=== PATIENT | male | born 2000 | race Caucasian/White ===

== ENCOUNTER 2023-09-14 08:25 | Emergency (ER) | payer SELFPAY ==
--- NOTE | ~2023-09-14 | XR_ITS ---
EXAMINATION: XR ankle LT min 3V DATE: 09/14/2023 08:46 INDICATION: Medial left ankle pain post soccer injury TECHNIQUE: Anteroposterior, oblique, mortise, and lateral views of the left ankle were obtained. COMPARISON: None. FINDINGS: Alignment is normal. No fracture. Joint spaces are well maintained. No ankle joint effusion. The so ft tissues are unremarkable. IMPRESSION: 1. Negative left ankle radiographs. Reviewed, dictated and finalized at location A.
--- NOTE | 2023-09-14 08:39 | ED.EXTPRO ---
HPI - Extremity Problem General Chief complaint: Extremity Problem,Nontraumatic Stated complaint: left ankle injury Time Seen by Provider: 09/14/23 08:40 Source: patient Mode of arrival: ambulatory Limitations: no limitations History of Present Illness HPI Narrative: Simone is a 23-year-old male patient presenting to the clinic today with complaints of a left ankle injury that occurred yesterday when he injured his ankle while playing soccer. States he was playing soccer when another opponent was coming towards him and that upon stuck out her leg and he jumped over the opponent and all inverted his left ankle. Is complaining of some left medial ankle pain. Related Data Home Medications Medication Instructions Recorded Confirmed No Home Medications 09/14/23 09/14/23 Allergies Allergy/AdvReac Type Severity Reaction Status Date / Time No Known Allergies Allergy Verified 09/14/23 08:56 Review of Systems Review of Systems: Pertinent positives per HPI. Patient denies any fever, chills, rash, headache, visual changes, dizziness, cough, runny nose, sore throat, shortness of breath, chest pain, palpitations, nausea, vomiting, diarrhea, constipation, abdominal pain, or any urinary issues. PMFSH Comments At the time of my signature, I reviewed and agree with the nursing past medical, surgical, social, and family history. There is no relevant family history pertinent to the patient complaint. Exam Narrative: General: Well-developed, well nourished, in no apparent distress Head: Normocephalic, atraumatic. Cardio: Regular rate and rhythm, s1 and s2 normal, no murmur appreciated. Resp: Clear to auscultation bilaterally, no rhonchi, rales, wheezing or rubs. Musculoskeletal: No deformity, tender to palpation over the medial ankle, pain with valgus and varus testing and dorsal flexion against resistance, muscle strength strong and equal, peripheral pulse strong, no edema, no cyanosis, normal gait and station Course Course Emergency Course: Portions of this record may have been created with voice recognition software. Level of Care: Express Care Visit Vital Signs Vital signs: Vital signs reviewed MDM - Extremity (Nontraumatic) MDM Narrative Medical decision making narrative: At the time of visit patient is resting comfortably on the exam table. Patient appears to be nontoxic. Diagnostics: X-ray of the left ankle was performed and was negative for any sign of fracture or malalignment. Plan: I suspect patient has a medial ankle sprain. Ice pack and Jonnie wrap was given to the patient. Patient already has crutches. Supportive measures were discussed with the patient and they voiced understanding discharge instructions and agrees to treatment plan. Return precautions reviewed Differential Diagnosis Differential diagnosis: Likely other (Ankle fracture, ankle sprain, contusion, soft tissue swelling/injury) Discharge Plan Discharge Clinical Impression: Left ankle sprain Qualifiers: Encounter type: initial encounter Involved ligament of ankle: other ligament Qualified Code(s): S93.492A - Sprain of other ligament of left ankle, initial encounter Patient Disposition: Home, Self-Care Condition: Stable Instructions: Antibiotic Form, Ankle Sprain (ED) Additional Instructions: Radiografia e ky?it t? k?mb?s s? majt? ?sht? negative p?r ?do shenj? thyerjeje ose keqdrejtimi. Pushoni, akulloni, ngrini lart dhe vishni mb?shtjell?sin jonnie sipas udh?zimeve Mund t? p?rdorni paterica p?r dit?t n? vijim Tylenol/motrin p?r dhimbje si? u diskutua. Gradualisht mbani pesh? Asnj? vrap apo sport derisa t? sh?rohet. Ndiqni co PCP-n? tuaj n?se simptomat vazhdojn? m? yola? se 1 shana?. Prescriptions: No Action No Home Medications Follow-up/Referrals: PHYSICIAN,CORE MANAGER [Primary Care Provider] - Time of Disposition: 09:08 Quality NIHSS Nursing Documentation ED NIHSS nursing documentation:
[2023-09-14 08:40] VITALS: BP 123/63; PULSE 68; RESP 16; TEMP 36.8; O2SAT 99
== END 2023-09-14 09:14 | disposition home or self-care (01) ==
PROVIDERS: Emergency Provider Nurse Practitioner Family; Referring Provider Emergency Medicine
DX: S93.402A Sprain of unspecified ligament of left ankle, initial encounter (principal); X50.9XXA Other and unspecified overexertion or strenuous movements or postures, initial encounter; Y93.66 Activity, soccer
CPT/HCPCS: 73610; 99203; G0463